=== PATIENT | male | born 1990 | race African-American/Black ===

== ENCOUNTER 2021-02-07 16:44 | Emergency (ER) | payer SELFPAY ==
[~2021-02-07] VITALS: Ht 180.3 cm; Wt 81.8 kg
[2021-02-07 16:56] VITALS: BP 107/69
[2021-02-07] MEDS ORDERED: cefTRIAXone IM 500 MG VIAL. IM ONE (17:45)
[2021-02-07] MEDS ORDERED: DOXY100T PO (18:02)
--- NOTE | 2021-02-07 18:03 | ED.ADGEN ---
Past Medical History Past Medical History: No Pertinent History Past Surgical History: No Surgical History Smoking Status: Current Every Day Smoker Alcohol Use: Occasionally General Adult EDM: Chief Complaint: SEXUALLY TRANSMITTED DISEASE HPI: HPI: Patient is a 30 year old AA male who presents to the emergency department with request for STD treatment. Patient states that his girlfriend recently tested positive for chlamydia. He reports increased urinary frequency, and abnormal penile discharge. He denies any abdominal pain, nausea, vomiting, diarrhea, hematuria, difficulty voiding, fever, cough, or shortness of breath. He currently denies any pain. Review of Systems: Review of Systems: Complete ROS is negative unless otherwise noted in HPI. Current Medications: Current Medications Medications (Trade) Dose Ordered Sig/Puma Start Time Stop Time Status Last Admin Dose Admin Ceftriaxone Sodium (Rocephin Im) 500 mg 1X ONCE 02/07/21 17:45 02/07/21 17:46 DC 02/07/21 18:07 500 MG Allergies: Allergies: Allergies Coded Allergies Type Severity Reaction Last Updated Verified No Known Drug Allergies 02/07/21 No Physical Exam: PE: See Above Constitutional: Well developed, well nourished, no acute distress, non-toxic appearance. [] HENT: Normocephalic, atraumatic, bilateral external ears normal, nose normal. [] Eyes: PERRLA, EOMI, conjunctiva normal, no discharge. [] Neck: Normal range of motion, no stridor. [] Cardiovascular:Heart rate regular rhythm Lungs & Thorax: Respirations even and unlabored, no retractions, no respiratory distress Skin: Warm, dry, no erythema, no rash. [] Extremities: No cyanosis, ROM intact, no edema. [] Neurologic: Alert and oriented X 3, no focal deficits noted. [] Psychologic: Affect normal, judgement normal, mood normal. [] Current Patient Data: Labs: Laboratory Tests Test 02/07/21 16:46 Urine Chlamydia DNA (PCR) Positive (Negative) A Neisseria gonorrhoeae DNA (PCR) Positive (Negative) A Vital Signs: Vital Signs Date Time Temp Pulse Resp B/P (MAP) Pulse Ox O2 Delivery O2 Flow Rate FiO2 02/07/21 16:56 97.8 98 18 107/69 (82) 97 Room Air 97.8 EKG: EKG: [] Heart Score: C/O Chest Pain: No Risk Scores: Score 0 - 3: 2.5% MACE over next 6 weeks - Discharge Home Score 4 - 6: 20.3% MACE over next 6 weeks - Admit for Clinical Observation Score 7 - 10: 72.7% MACE over next 6 weeks - Early Invasive Strategies Radiology/Procedures: Radiology/Procedures: [] Course & Med Decision Making: Course & Med Decision Making Pertinent Labs and Imaging studies reviewed. (See chart for details) []The patient was seen and interviewed as well as examined at the bedside. The chart was reviewed. The case was discussed. Agree with the plan of care. Dragon Disclaimer: Dragon Disclaimer: This electronic medical record was generated, in whole or in part, using a voice recognition dictation system. Departure Departure Impression: Primary Impression: Contact with and (suspected) exposure to infections with a predominantly sexual mode of transmission Additional Impression: Dysuria Disposition: HOME / SELF CARE / HOMELESS Condition: STABLE Referrals: NO PCP (PCP) Patient Instructions: Sexually Transmitted Disease, [id number] Additional Instructions: Fill the prescription and take as directed. Recommend that you go to your local health department for comprehensive sexually transmitted disease testing. You have been treated for a suspected gonorrhea and chlamydia. Avoid having intercourse until the results of gonorrhea and chlamydia testing are available, these results will not be available for 48 hours. If one or both of these tests is positive, you need to refrain from intercourse for approximately 1 week following the treatment of any current partners. Follow-up with your primary care doctor if symptoms persist, return to ER symptoms worsen. Scripts Doxycycline Hyclate (DOXYCYCLINE HYCLATE) 100 Mg Tablet 1 TAB PO BID, #14 TAB 0 Refills Prov: ROX TREJO APRN 02/07/21 Problem Qualifiers ROX TREJO APRN February 07, 2021 18:03 CHRISTINE GARCIA I DO February 11, 2021 18:48
--- NOTE | 2021-02-11 19:32 | VNOTE ---
CALL BACK NOTE CALL BACK Positive for gonorrhea and chlamydia, results given to patient. He was treated МАРИНА MASON APRN February 11, 2021 19:32 CHRISTINE GARCIA DO February 12, 2021 18:04
== END 2021-02-07 18:20 | disposition home or self-care (01) ==
LOC: ER 16:44
DX: Z20.2 Contact with and (suspected) exposure to infections with a predominantly sexual mode of transmission (principal); R30.0 Dysuria; F17.200 Nicotine dependence, unspecified, uncomplicated
CPT/HCPCS: 87491; 87591; 96372; 99283; J0696

== ENCOUNTER 2021-05-06 00:21 | Emergency (ER) | payer SELFPAY ==
[~2021-05-06] VITALS: Ht 180.3 cm; Wt 72.0 kg
[~2021-05-06 00:21] MED LIST: DOXY100T PO
[2021-05-06 02:41] LABS: BASO # 0.1 x10^3/uL (0.0-0.2); BASO % 2 % (0-3); EOS # 0.4 x10^3/uL (0.0-0.7); EOS % 7 % (0-3); HEMATOCRIT 40.2 % (39.0-53.0); HEMOGLOBIN 13.3 g/dL (13.0-17.5); LYMPH % 33 % (24-48); MEAN CORPUSCULAR HEMOGLOBIN 27 pg (25-35); MEAN CORPUSCULAR HGB CONC 33 g/dL (31-37); MEAN CORPUSCULAR VOLUME 83 fL (79-100); MONO # 0.7 x10^3/uL (0.0-1.1); MONO % 11 % (0-9); NEUT # 2.9 x10^3/uL (1.8-7.7); NEUT % 48 % (31-73); PLATELET COUNT 235 x10^3/uL (140-400); RED BLOOD COUNT 4.85 x10^6/uL (4.30-5.70); RED CELL DISTRIBUTION WIDTH 16.6 % (11.5-14.5); WHITE BLOOD COUNT 6.2 x10^3/uL (4.0-11.0)
[2021-05-06] MEDS ORDERED: ONDANSETRON PF 4 MG/2 ML VIAL. IVP ONE (02:45)
[2021-05-06] MEDS ORDERED: IV NORMAL SALINE 1000ML BAG 1,000 ML IV ONE (02:45)
[2021-05-06 02:48] LABS: CALCIUM 8.9 mg/dL (8.5-10.1); CREATININE 1.1 mg/dL (0.7-1.3); GFR 96.4; POTASSIUM 4.4 mmol/L (3.5-5.1)
[2021-05-06 02:54] LABS: ALBUMIN 4.1 g/dL (3.4-5.0); ALBUMIN/GLOBULIN RATIO 1.2 (1.0-1.7); TOTAL BILIRUBIN 0.2 mg/dL (0.2-1.0); TOTAL PROTEIN 7.5 g/dL (6.4-8.2)
[2021-05-06] MEDS ORDERED: CONTRAST GIVEN. MC PRN (03:15)
[2021-05-06] MEDS ORDERED: IOHEXOL 300 MG/ML 100ML VIAL. PO ONE (03:15)
[2021-05-06 03:22] LABS: INFLUENZA A PATIENT NEGATIVE (NEGATIVE); INFLUENZA B PATIENT POSITIVE (NEGATIVE)
[2021-05-06] MEDS ORDERED: OSEL75CA PO (03:48)
--- NOTE | 2021-05-06 03:50 | PHYS DOC ---
Past Medical History Past Medical History: No Pertinent History Past Surgical History: No Surgical History Smoking Status: Current Every Day Smoker Alcohol Use: Rarely General Adult EDM: Chief Complaint: GI PROBLEM HPI: HPI: Patient is a 30 year old male presents with the chief complaint of abdominal discomfort and blood in stool. Symptoms for several days. Pain located in lower abdomen. Episodes of brb with stool and stool straight blood. Associated nausea without vomiting. Patient also has runny stuffy nose. Review of Systems: Review of Systems: Review of systems: Constitutional symptoms- No fever, no chills. Eyes- No Discharge, No Visual Loss Respiratory symptoms- No shortness of breath, No wheezing, No Dyspnea on Exertion Cardiovascular Systems; No chest pain, No Palpitations, No syncope Gastrointestinal symptoms: Positive abdominal pain, Positive nausea, no vomitin g or diarrhea. Positive blood in stool Genitourinary symptoms: No dysuria. Musculoskeletal symptoms: No back pain No extremity pain. NEUROLOGICAL Symptoms: No headache, no generalized weakness; No focal Weakness Skin: No rash. HEENT positive runny nose, positive stuffy nose positive sinus congestion Heart Score: C/O Chest Pain: N/A Risk Factors: Risk Factors: DM, Current or recent (<one month) smoker, HTN, HLP, family history of CAD, obesity. Risk Scores: Score 0 - 3: 2.5% MACE over next 6 weeks - Discharge Home Score 4 - 6: 20.3% MACE over next 6 weeks - Admit for Clinical Observation Score 7 - 10: 72.7% MACE over next 6 weeks - Early Invasive Strategies Current Medications: Current Medications Medications (Trade) Dose Ordered Sig/Puma Start Time Stop Time Status Last Admin Dose Admin Info (CONTRAST GIVEN -- Rx MONITORING) 1 each PRN DAILY PRN 05/06/21 03:15 05/08/21 03:14 Iohexol (Omnipaque 300 Mg/ml) 75 ml 1X ONCE 05/06/21 03:15 05/06/21 03:16 DC 05/06/21 03:20 75 ML Ondansetron HCl (Zofran) 4 mg 1X ONCE 05/06/21 02:45 05/06/21 02:46 DC Sodium Chloride 1,000 ml @ 1,000 mls/hr 1X ONCE 05/06/21 02:45 05/06/21 03:44 DC 05/06/21 02:38 1,000 MLS/HR Allergies: Allergies: Allergies Coded Allergies Type Severity Reaction Last Updated Verified No Known Drug Allergies 02/07/21 No Physical Exam: PE: General: alert, no acute distress. Skin: warm, dry and intact, no erythema, no rash. HENT: bilateral external ears normal, oropharynx moist, nose normal. Head:: Normocephalic, atraumatic. Neck: Trachea midline. Eyes: EOMI, Normal conjunctiva, No drainage CARDIOVASCULAR: Regular rate and rhythm RESPIRATORY: No respiratory distress Back: Full range of motion. MUSCULOSKELETAL: Full range of motion of bilateral upper and lower extremities. GASTROINTESTINAL: Abdomen soft without rebound or guarding. NEUROLOGICAL: Alert and noted to person, place and time. No neurological deficits observed Psychiatric: Cooperative. Normal judgment Current Patient Data: Labs: Laboratory Tests Test 05/06/21 02:25 05/06/21 02:36 White Blood Count 6.2 x10^3/uL (4.0-11.0) Red Blood Count 4.85 x10^6/uL (4.30-5.70) Hemoglobin 13.3 g/dL (13.0-17.5) Hematocrit 40.2 % (39.0-53.0) Mean Corpuscular Volume 83 fL (79-100) Mean Corpuscular Hemoglobin 27 pg (25-35) Mean Corpuscular Hemoglobin Concent 33 g/dL (31-37) Red Cell Distribution Width 16.6 % (11.5-14.5) H Platelet Count 235 x10^3/uL (140-400) Neutrophils (%) (Auto) 48 % (31-73) Lymphocytes (%) (Auto) 33 % (24-48) Monocytes (%) (Auto) 11 % (0-9) H Eosinophils (%) (Auto) 7 % (0-3) H Basophils (%) (Auto) 2 % (0-3) Neutrophils # (Auto) 2.9 x10^3/uL (1.8-7.7) Lymphocytes # (Auto) 2.0 x10^3/uL (1.0-4.8) Monocytes # (Auto) 0.7 x10^3/uL (0.0-1.1) Eosinophils # (Auto) 0.4 x10^3/uL (0.0-0.7) Basophils # (Auto) 0.1 x10^3/uL (0.0-0.2) Sodium Level 140 mmol/L (136-145) Potassium Level 4.4 mmol/L (3.5-5.1) Chloride Level 104 mmol/L (98-107) Carbon Dioxide Level 30 mmol/L (21-32) Anion Gap 6 (6-14) Blood Urea Nitrogen 8 mg/dL (8-26) Creatinine 1.1 mg/dL (0.7-1.3) Estimated GFR (Cockcroft-Gault) 96.4 BUN/Creatinine Ratio 7 (6-20) Glucose Level 88 mg/dL (70-99) Calcium Level 8.9 mg/dL (8.5-10.1) Total Bilirubin 0.2 mg/dL (0.2-1.0) Aspartate Amino Transferase (AST) 20 U/L (15-37) Alanine Aminotransferase (ALT) 19 U/L (16-63) Alkaline Phosphatase 73 U/L (46-116) Total Protein 7.5 g/dL (6.4-8.2) Albumin 4.1 g/dL (3.4-5.0) Albumin/Globulin Ratio 1.2 (1.0-1.7) Influenza Type A Antigen Negative (NEGATIVE) Influenza Type B Antigen Positive (NEGATIVE) SARS-CoV-2 Antigen (Rapid) Negative (NEGATIVE) Laboratory Tests 05/06/21 02:25 Laboratory Tests 05/06/21 02:25 Vital Signs: Vital Signs Date Time Temp Pulse Resp B/P (MAP) Pulse Ox O2 Delivery O2 Flow Rate FiO2 05/06/21 02:23 99.1 97 24 135/64 (82) 99 Room Air 99.1 EKG: EKG: [] Radiology/Procedures: Radiology/Procedures: [] Impression: Study: CT abdomen/pelvis with intravenous contrast Indication: Abdominal pain. Comparison: None. Technique: Helical CT imaging performed of the abdomen and pelvis after the intravenous administration of contrast. Sagittal and coronal reformats were obtained. One or more of the following individualized dose reduction techniques were utilized for this examination: 1. Automated exposure control 2. Adjustment of the mA and/or kV according to patient size 3. Use of iterative reconstruction technique. Findings: Unremarkable visualized lungs and mediastinal contents. Small area of relative hypoattenuation with central increased density within the liver adjacent to the gallbladder, image 29 series 2 measuring up to 1.2 cm, most consistent with a hemangioma exhibiting a bright dot sign. Otherwise unremarkable liver. Within normal limits gallbladder, biliary tree, pancreas, adrenal glands and spleen. Symmetric renal parenchymal enhancement. Small cyst at the lower pole on the right measuring 0.9 cm. No hydronephrosis. Unremarkable bladder and prostate. The gastrointestinal tract is incompletely evaluated without oral contrast. Additionally, patient body habitus with a paucity of abdominal/pelvic fat results in close apposition of bowel limiting individual discrimination. No gastric wall emphysema or discrete mass. The duodenum normally crosses midline. Mild constipation. Note is also made of fecalization of enteric material such as seen within the pelvis on image 63 series 2. No findings to indicate small bowel obstruction. The appendix is likely seen on images 54 through 57 series 2 with gas in the lumen. Within normal limits major vasculature. It is difficult to identify individual lymph nodes. Lymph nodes at the groin are within normal limits. No pneumoperitoneum or large volume free fluid. No acute or aggressive osseous process. No significant degenerative changes. Impression: No acute abnormality is identified throughout the abdomen or pelvis. Note is made that the gastrointestinal tract is a fully evaluated without positive oral contrast. There are no findings to indicate bowel obstruction, an overt enterocolitis or appendicitis. Mildly constipated state in addition to fecalization of scattered enteric material typical of slow transit. Course & Med Decision Making: Course & Med Decision Making Pertinent Labs and Imaging studies reviewed. (See chart for details) [] Marcela Disclaimer: Marcela Disclaimer: This electronic medical record was generated, in whole or in part, using a voice recognition dictation system. Departure Departure Impression: Primary Impression: Influenza B Additional Impressions: Abdominal pain Blood in stool Disposition: HOME / SELF CARE / HOMELESS Condition: STABLE Referrals: NO PCP (PCP) Patient Instructions: Abdominal Pain, Influenza, Adult Scripts Oseltamivir Phosphate (TAMIFLU) 75 Mg Capsule 1 CAP PO BID, #10 CAP Prov: CHRISTINE GARCIA DO 05/06/21 CHRISTINE GARCIA DO May 06, 2021 03:50
[2021-05-06 04:00] VITALS: BP 120/60
--- NOTE | 2021-05-06 04:07 | RAD ---
Study: CT abdomen/pelvis with intravenous contrast Indication: Abdominal pain. Comparison: None. Technique: Helical CT imaging performed of the abdomen and pelvis after the intravenous administratio n of contrast. Sagittal and coronal reformats were obtained. One or more of the following individualized dose reduction techniques were utilized for this examinat ion: 1. Automated exposure control 2. Adjustment of the mA and/or kV according to patient size 3. Use of iterative reconstruction technique. Findings: Unremarkable visualized lungs and mediastinal contents. Small area of relative hypoattenuation with central increased density within the liver adjacent to th e gallbladder, image 29 series 2 measuring up to 1.2 cm, most consistent with a hemangioma exhibiting a bright dot sign. Otherwise unremarkable liver. Within normal limits gallbladder, biliary tree, ho creas, adrenal glands and spleen. Symmetric renal parenchymal enhancement. Small cyst at the lower pole on the right measuring 0.9 cm. No hydronephrosis. Unremarkable bladder and prostate. The gastrointestinal tract is incompletely evaluated without oral contrast. Additionally, patient bod y habitus with a paucity of abdominal/pelvic fat results in close apposition of bowel limiting indivi dual discrimination. No gastric wall emphysema or discrete mass. The duodenum normally crosses midlin e. Mild constipation. Note is also made of fecalization of enteric material such as seen within the p anabel on image 63 series 2. No findings to indicate small bowel obstruction. The appendix is likely s een on images 54 through 57 series 2 with gas in the lumen. Within normal limits major vasculature. It is difficult to identify individual lymph nodes. Lymph nod es at the groin are within normal limits. No pneumoperitoneum or large volume free fluid. No acute or aggressive osseous process. No significant degenerative changes. Impression: No acute abnormality is identified throughout the abdomen or pelvis. Note is made that the gastrointe stinal tract is a fully evaluated without positive oral contrast. There are no findings to indicate b owel obstruction, an overt enterocolitis or appendicitis. Mildly constipated state in addition to fec alization of scattered enteric material typical of slow transit. Electronically signed by: TIFFANY ENGLE MD (05/06/2021 4:04 AM) [facility]
== END 2021-05-06 04:30 | disposition home or self-care (01) ==
LOC: ER 00:21
DX: J10.1 Influenza due to other identified influenza virus with other respiratory manifestations (principal); Z20.822 Contact with and (suspected) exposure to COVID-19; K92.1 Melena; R10.30 Lower abdominal pain, unspecified; F17.200 Nicotine dependence, unspecified, uncomplicated
CPT/HCPCS: 36415; 74177; 80053; 85025; 87426; 87804; 96360; 99285; J7030; Q9967